=== PATIENT | male | born 1945 | race American Indian/Alaskan Native ===

== ENCOUNTER 2016-12-17 13:03 | Emergency (ER) | payer MEDICARE, MEDICAID ==
[2016-12-17 13:03] VITALS: PULSE 74
[2016-12-17 13:17] VITALS: BP 102/62; PULSE 98; RESP 18; TEMP 98.5; O2SAT 100
[2016-12-17] MEDS ORDERED: Alum-Mag Hydrox-Simethicone Susp (30 mL) PO STA (14:17)
[2016-12-17] MEDS ORDERED: Alum-Mag Hydrox-Simethicone Susp (30 mL) ONE (14:34)
--- NOTE | 2016-12-17 14:45 | C.PDOC ---
History Of Present Illness 71 y/o male with Hx of CVA, HLD and CHF presents to ED with complaints of occasional epigastric discomfort 8.5/10 for 2 weeks worse when eating. Patient describes pain as "nagging" and also reports chest pain. Patient states he saw PMD and had "negative results" but was still instructed to come to ED for evaluation. Patient reports pain worsens with meals. Patient states drinking baking soda and water helps pain and denies fever, chills or any other complaints at this time. Patient denies Hx of GERD, PUD, or gastritis. Time Seen by Provider: 12/17/16 13:30 Chief Complaint (Nursing): Abdominal Pain History Per: Patient History/Exam Limitations: no limitations Onset/Duration Of Symptoms: Days Current Symptoms Are (Timing): Still Present Context: Food Location Of Pain/Discomfort: Epigastric Quality Of Discomfort: "Pain" Recent travel outside of the [place]: No Additional History Per: Patient Past Medical History Reviewed: Historical Data, Nursing Documentation, Vital Signs Vital Signs: Last Vital Signs Temp 98.5 F 12/17/16 13:15 Pulse 98 H 12/17/16 13:15 Resp 18 12/17/16 13:46 BP 102/62 12/17/16 13:15 Pulse Ox 100 12/17/16 18:04 - Medical History PMH: CAD, CHF, CVA, HTN, Hypercholesterolemia Surgical History: CABG, Pacemaker Family History: States: CAD - Social History Hx Tobacco Use: Yes Hx Alcohol Use: No Hx Substance Use: No - Immunization History Hx Tetanus Toxoid Vaccination: No Hx Influenza Vaccination: Yes (12/2013) Hx Pneumococcal Vaccination: Yes (2012) Review Of Systems Except As Marked, All Systems Reviewed And Found Negative. Constitutional: Positive for: Other ((+) anorexia, pain when he eats). Negative for: Fever, Chills Cardiovascular: Positive for: Chest Pain Respiratory: Negative for: Shortness of Breath Gastrointestinal: Positive for: Nausea, Abdominal Pain. Negative for: Vomiting , Diarrhea Genitourinary: Negative for: Dysuria, Hematuria Musculoskeletal: Negative for: Back Pain Skin: Negative for: Rash Neurological: Negative for: Weakness, Numbness Physical Exam - Physical Exam Appears: Non-toxic, Other (comfortable, thin black male) Skin: Warm, Dry, No Rash Head: Atraumatic, Normacephalic Eye(s): bilateral: Normal Inspection Oral Mucosa: Moist Neck: Normal ROM, Supple Chest: Symmetrical Cardiovascular: Rhythm Regular, No Murmur Respiratory: Normal Breath Sounds, No Rales, No Rhonchi, No Wheezing Gastrointestinal/Abdominal: Bowel Sounds, Soft, Tenderness (Diffuse but more on LUQ and LLQ), No Guarding, Other (surgical scar superior to umbilicus. Tempanic to the LUQ) Back: No CVA Tenderness, No Paraspinal Tenderness Neurological/Psych: Oriented x3 ED Course And Treatment - Laboratory Results Result Diagrams: 12/17/16 14:50 12/17/16 14:50 Lab Interpretation: Normal (vbg with normal lactate 1.5, UA neg.) ECG: Interpreted By Me ECG Rhythm: Sinus Rhythm ECG Interpretation: Normal Rate From EC O2 Sat by Pulse Oximetry: 100 (RA) Pulse Ox Interpretation: Normal - Radiology CXR: Interpreted by Me CXR Interpretation: Yes: No Acute Disease - Other Rad abd x 2 X-Ray: Interpreted by Me (+ increased stool and gas) Progress Note: Protonix IV, Maalox PO with much improvement. Reevaluation Time: 15:43 Reassessment Condition: Improved Medical Decision Making Medical Decision Making: though a vasculopath and + early satiety and epigastric discomfort with food, eval neg for ACS, pancreatitis, mesenteric ischemia with normal WBC's/lactate. improved s/s with maalox/protonix c/w gastritis/PUD (though usually improved with food and pt w anorexia due to pain w food) Upper endoscopy as opt and continue PPI/maalox colicky epigastric/LUQ c/w constipation where increased stool and gas noted on obstructive series. Disposition Doctor Will See Patient In The: Office Counseled Patient/Family Regarding: Studies Performed, Diagnosis - Disposition Referrals: Jos Samano MD [Staff Provider] - Disposition: HOME/ ROUTINE Disposition Time: 15:45 Condition: GOOD Additional Instructions: please take Protonix 20 mg daily (before breakfast) to lower your stomach acid all day Maalox 30 cc's (1 tablespoon) 4-5x/day for symptoms of GERD/Gastritis Follow-up with Dr. Samano for referral to a [facility] to consider upper endoscopy in the next 1-2 months. Prescriptions: Pantoprazole Sodium [Protonix] 20 mg PO DAILY #30 ect Instructions: Gastritis (ED), Gastroesophageal Reflux Disease (ED) Forms: [facility] (Armenian) - Clinical Impression Clinical Impression: Colicky epigastric pain - Scribe Statement The provider has reviewed the documentation as recorded by the Scribe Tommie Baker & Melly [email or web address] All medical record entries made by the Scribe were at my direction and personally dictated by me. I have reviewed the chart and agree that the record accurately reflects my personal performance of the history, physical exam, medical decision making, and the department course for this patient. I have also personally directed, reviewed, and agree with the discharge instructions and disposition.
[2016-12-17 14:56] LABS: BASO # 0.1 K/uL (0.0-0.2); BASO % 0.8 % (0.0-2.0); EOS # 0.2 K/uL (0.0-0.7); EOS % 2.6 % (0.0-4.0); LYMPH # 2.5 K/uL (1.0-4.3); LYMPH % 27.7 % (20.0-40.0); MEAN CELL VOLUME 85.6 fL (80.0-94.0); MEAN CORPUSCULAR HEMOGLOBIN 28.9 pg (27.0-31.0); MEAN CORPUSCULAR HGB CONC 33.8 g/dL (33.0-37.0); MEAN PLATELET VOLUME 8.6 fL (7.2-11.7); MONO # 0.9 K/uL (0.0-0.8); MONO % 9.9 % (0.0-10.0); NRBC % 0.1 % (0.0-2.0); RED CELL DISTRIBUTION WIDTH 14.6 % (11.5-14.5); WHITE BLOOD COUNT 9.1 K/uL (4.8-10.8)
[2016-12-17 15:00] LABS: VENOUS BLOOD GAS BASE EXCESS 2.6 mmol/L (0.0-2.0); VENOUS BLOOD GAS PCO2 55 mmHg (40-60); VENOUS BLOOD PH 7.34 (7.32-7.43)
[2016-12-17 15:04] LABS: POTASSIUM 4.1 mmol/L (3.6-5.2)
[2016-12-17 15:05] LABS: RBC URINE < 1 /hpf (0-3); URINE BILIRUBIN NEGATIVE (NEGATIVE); URINE BLOOD NEGATIVE (NEGATIVE); URINE COLOR Yellow (YELLOW); URINE GLUCOSE (UA) NORMAL (Normal); URINE KETONE NEGATIVE (NEGATIVE); URINE LEUKOCYTE ESTERASE NEG Leu/uL (Negative); URINE PROTEIN NEGATIVE (NEGATIVE); WBC URINE < 1 /hpf (0-5)
[2016-12-17 15:06] LABS: BILIRUBIN,TOTAL 0.6 mg/dL (0.2-1.3); INR 1.1
[2016-12-17 15:22] LABS: ALB/GLOB RATIO 1.4 (1.0-2.1)
--- NOTE | 2016-12-17 15:26 | RAD ---
PROCEDURE: Radiographs of the chest and abdomen (obstructive series) HISTORY: abd pain COMPARISON: No prior. TECHNIQUE: AP radiograph of the chest, with upright and supine radiographs of the abdomen. FINDINGS: CHEST: Lungs: Clear. Cardiovascular: Top-normal heart size. Pacemaker AICD device in place. Midline sternotomy and coronary artery bypass clips. No pulmonary vascular congestion. Pleura: No pleural fluid. No pneumothorax. Other findings: None. ABDOMEN AND PELVIS: Bowel: Stool retention. No evidence of mechanical obstruction. Free air: None. Bones: Bilateral hip arthrosis inferior lumbar facet hypertrophic arthrosis right greater than left Other findings: None. IMPRESSION: No bowel obstruction. No free air. Moderate stool retention No infiltrate
--- NOTE | 2016-12-18 14:22 | CARD ---
APPROVED REPORT EKG Measurement Heart [id number] <Conclusion> Normal sinus rhythm Possible Anterior infarct, age undetermined Abnormal ECG
== END 2016-12-17 16:41 | disposition home or self-care (01) ==
LOC: C.ER 13:03
DX: R10.13 Epigastric pain (principal); R10.84 Generalized abdominal pain; I10 Essential (primary) hypertension; E78.00 Pure hypercholesterolemia, unspecified; I25.10 Atherosclerotic heart disease of native coronary artery without angina pectoris
CPT/HCPCS: 74022; 80053; 81001; 82803; 83690; 85025; 85610; 85730; 93005; 96374; 99285; C9113